=== PATIENT | male | born 1950 | race Caucasian/White ===

== ENCOUNTER 2023-11-24 10:33 | Outpatient (REF) | payer MEDICARE, OTHER, SELFPAY ==
[2023-11-24 11:50] LABS: Estimated Average Glucose 154 mg/dL
[2023-11-24 12:32] LABS: Alanine Aminotransferase 10 U/L (0-40); Albumin Level 4.3 g/dL (3.5-5.0); Alkaline Phosphatase 90 U/L (39-117); Anion Gap 13 (12-20); Aspartate Amino Transferase 16 U/L (5-37); Bilirubin Total 0.4 mg/dL (0.0-1.0); Blood Urea Nitrogen 17 mg/dL (9-16); Calcium 9.5 mg/dL (8.4-10.2); Carbon Dioxide 29 mmol/L (22-29); Chloride 103 mmol/L (96-108); Cholesterol 131 mg/dL (<200); Estimated Glomerular Filt Rate > 60; Glucose Random 157 mg/dL (60-115); HDL Cholesterol 41 mg/dL (>40); LDL Cholesterol Calculated 76 mg/dL (<100); Potassium 4.2 mmol/L (3.3-5.1); Sodium 141 mmol/L (135-145); Total Protein 6.8 g/dL (6.5-8.0); Triglycerides 73 mg/dL (<150)
[2023-11-24 12:50] LABS: TSH reflex Free T4 1.82 uIU/mL (0.32-4.0)
[2023-11-24 14:36] LABS: Creatinine Urine 95.37 mg/dL; Microalbum/Creatinine Ratio Ur 13.6 ug/mg cr (<30)
== END 2023-11-24 10:34 | disposition home or self-care (01) ==
LOC: HO.WFDLDS 10:33
PROVIDERS: Visit Provider Internal Medicine
DX: E11.9 Type 2 diabetes mellitus without complications (principal); E78.5 Hyperlipidemia, unspecified; Z13.228 Encounter for screening for other metabolic disorders
CPT/HCPCS: 36415; 80053; 80061; 82043; 82570; 83036; 84443

== ENCOUNTER 2023-11-29 08:17 | Outpatient (AMB) | payer MEDICARE, OTHER, SELFPAY ==
--- NOTE | 2023-11-29 08:27 | A.OFFPC_ITS ---
Vital Signs 11/29/23 08:43 Height 5 ft 7.5 in Weight 199 lb BMI 30.7 BP 136/60 Blood Pressure Location Rt brachial Position Sitting Respiration 13 Pulse 71 Pulse Source Pulse Oximeter Pulse Oximetry (%) 99 Oxygen Delivery Method Room Air Intake Visit Reasons: establish care Intake Note: Patient reports he needs medication refilled- trazodone and atorvastatin and to go over his lab work. 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 Accompanied by: Self / Same As Patient Allergies No Known Allergies Allergy (Verified 11/29/23 08:38) Medication List - Last Reconciled 11/29/23 by Mariah Augustin MD aspirin (Adult Aspirin Regimen) 81 mg PO DAILY atorvastatin 10 mg PO DAILY clobetasol 0.05% 1 appl topical BID dulaglutide (Trulicity) 3 mg subcut QWEEK gabapentin 300 mg PO TID insulin glargine (Basaglar KwikPen U-100 Insulin) 24 units subcut QPM metformin 1,000 mg PO BID sildenafil (Viagra) 100 mg PO DAILY PRN tadalafil (Cialis) 5 mg PO DAILY tirzepatide (Mounjaro) 7.5 mg (0.5 mL) subcut QWEEK trazodone 50 mg PO BEDTIME PRN valsartan 160 mg PO DAILY Tobacco use date assessed: 11/29/23 Fall risk assessment: No Falls in past year Last assessed Fall Risk: 11/29/23 Dental Screening Dental Screen Date: 11/29/23 Did you have a dental visit in the last 12 months?: Yes Did you have a dental problem in the last 6 months where you did not have access to dental care?: No Was dental information given to patient?: Patient has dentist HPI HPI Comments History of Present Illness Details The patient is a 72-year-old male with a past medical history of type 2 diabetes, hypertension, hyperlipidemia, OA presenting for follow-up About 10 years ago had lipoma excision. Cyst recurred and he would like repeat excision. Type 2 diabetes: Last A1c 7%-08/2023. On Basaglar 20 units daily (prescribed 24), metformin 1000 twice daily, Trulicity 3 mg per week. Issues with stock on last though has not been out. Sometime suboptimal control on trulicity. No weight loss benefit. On statin, ARB. Does have neuropathy in is using gabapentin. History of intra-ocular lens replacement procedure. CV: On valsartan, lipitor. Denies chest pain, shortness of breath OA: Right knee. Colonoscopy 01/2022 ROS CONSTITUTIONAL: Denies weight loss, fever and chills. HEENT: Denies changes in vision and hearing. RESPIRATORY: Denies SOB and cough. CV: Denies palpitations and CP GI: Denies abdominal pain, N/V/D : Denies dysuria and urinary frequency. MSK: Denies new myalgia and joint pain. SKIN: see HPI NEUROLOGICAL: Denies headache PSYCHIATRIC: Denies recent changes in mood. PHYSICAL EXAM: GENERAL: Alert and oriented x 3. NAD EYES: EOMI. Anicteric. HENT: Moist mucous membranes. No scleral icterus. No cervical lymphadenopathy. LUNGS: Clear to auscultation bilaterally. CARDIOVASCULAR: Regular rate and rhythm. No murmur. No JVD. ABDOMEN: Soft, non-tender +bs EXTREMITIES: No edema. Non-tender. SKIN: Large left back cyst NEUROLOGIC: No focal neurological deficits. CN II-XII grossly intact PSYCHIATRIC: Cooperative. Appropriate mood and affect [facility] Medical History Erectile dysfunction Type 2 diabetes mellitus with renal manifestations Microalbuminuria Hypertension Hyperlipidemia Type 2 diabetes mellitus Surgical History History of eye surgery History of shoulder surgery Family History Mother Diabetes Sister Breast cancer Brother Colon cancer Social History Household Members: Spouse Housing: House 75 years or older and lives alone: No Alcohol intake: current Alcohol intake frequency: a few times a week Alcohol type: beer Patient Tobacco Use Status: Never used Tobacco e-Cigarette/Vaping Use: Never Used service: Yes Current occupational status: employed Current occupation: [employer] Cognitive needs: No Hearing needs: No Vision needs: No Questionnaire PHQ-9 Over the last 2 weeks, how often have you been bothered by any of the following problems? 1. Little interest or pleasure in doing things: not at all 2. Feeling down, depressed, or hopeless: not at all 3. Trouble falling or staying asleep, or sleeping too much: not at all 4. Feeling tired or having little energy: not at all 5. Poor appetite or overeating: not at all 6. Feeling bad about yourself - or that you are a failure or have let yourself or your family down: not at all 7. Trouble concentrating on things, such as reading the newspaper or watching television: not at all 8. Moving or speaking so slowly that other people could have noticed. Or the opposite - being so fidgety or restless that you have been moving around a lot more than usual: not at all 9. Thoughts that you would be better off or of hurting yourself in some way: not at all Total score: 0 Depression Screening Interpretation: Negative (neg) Depression Screening Done: Yes 54128 - PHQ-9 Billing: Yes Source: Developed by Drs. Cal Vale, Tiffanie hSort, Raj Tran and colleagues, with an educational ankita from [email or web address]. Thrive Questionnaire Date Thrive assessed: 11/29/23 I am a: Patient What is your living situation today?: I have a steady place to live Within the past 12 months, did the food you bought not last and you didn't have the money to get more?: Never true Within the past 12 months, did you worry whether your food would run out before you got money to buy more?: Never true Do you have trouble paying for medicines?: No Do you have trouble getting transportation to medical appointments?: No Do you have trouble paying your heating and electricity bill?: No Do you have trouble taking care of your child, family member or friend?: No Do you have trouble with day-to-day activities such as bathing, preparing meals, shopping, managing finances, etc.?: No Are you currently unemployed and looking for a job?: No Are you interested in more education?: No Currently or been in a relationship where the following occur: No concerns reported THRIVE Score: 0 AUDIT C Alcohol Use Questionnaire (AUDIT-C) 1. How often do you have a drink containing alcohol?: 2-3 times a week 2. How many drinks containing alcohol do you have on a typical day when you are drinking?: 1 or 2 3. How often do you have six or more drinks on one occasion?: Never Total Score: 3 CHAZ-7 AMB Questionnaire CHAZ-7 Date CHAZ - 7 assessed: 11/29/23 Feeling nervous, anxious, or on edge: 0 = Not at all Not being able to stop or control worryin = Not at all Worrying too much about different things: 0 = Not at all Trouble relaxin = Not at all Being so restless that it is hard to sit still: 0 = Not at all Becoming easily annoyed or irritable: 0 = Not at all Feeling afraid as if something awful might happen: 0 = Not at all Total CHAZ-7 score (0-4 normal; 5-9 mild; 10-14 moderate; 15-21 severe): 0 Source: Developed by Drs. Cal Vale, Tiffanie Short, Raj Tran and colleagues, with an educational ankita from [email or web address]. CHAZ-7 Assessment Billing CHAZ-7 Assessment Tool: CHAZ-7 Assessment 84686 Physical exam (Primary Care) Vital Signs: Last Vital Signs Pulse 71 11/29/23 08:43 Resp 13 11/29/23 08:43 BP 136/60 11/29/23 08:43 Pulse Ox 99 11/29/23 08:43 Oxygen Delivery Method Room Air 11/29/23 08:43 BMI result Body Mass Index 30.7 Tobacco/Smoking Status: Tobacco use Status Tobacco use date assessed 11/29/23 11/29/23 08:51 Patient Tobacco Use Status Never used Tobacco 11/29/23 08:51 e-Cigarette/Vaping Use Never Used 11/29/23 08:51 PHQ-9: PHQ-9 Score PHQ-9: Total score 0 11/29/23 09:01 Depression Screening Interpretation: Negative (neg) Thrive Assessment: Date of Thrive Assessment Date Thrive assessed 11/29/23 11/29/23 08:56 Currently or been in a relationship where the following occur: No concerns repo rted Assessment and Plan Assessment & Plan (1) Type 2 diabetes mellitus: Code(s): E11.9 - Type 2 diabetes mellitus without complications Qualifiers: Diabetes mellitus parts counterman insulin use: with prison use Diabetes mellitus complication status: with ophthalmic complications Diabetes mellitus complication detail: with other ophthalmic complication Qualified Code(s): E11.39 - Type 2 diabetes mellitus with other diabetic ophthalmic complication; Z79.4 - skilled nursing (current) use of insulin Plan: controlled. Switch trulicity to mounjaro if covered. 3mg to 7.5mg If continues trulicity increase basaglar to 22 to 24 units. continue metformin If starts mounjaro hold current basaglar dose (2) Hyperlipidemia: Code(s): E78.5 - Hyperlipidemia, unspecified Qualifiers: Hyperlipidemia type: mixed hyperlipidemia Qualified Code(s): E78.2 - Mixed hyperlipidemia (3) Lipoma: Code(s): D17.9 - Benign lipomatous neoplasm, unspecified Qualifiers: Lipoma location: trunk Qualified Code(s): D17.1 - Benign lipomatous neoplasm of skin and subcutaneous tissue of trunk Plan: referral to general surgery Orders: Orders Hemoglobin A1c 3 Months E11.9 - Type 2 diabetes mellitus without complications, E78.5 - Hyperlipidemia, unspecified, Z13.228 - Encounter for screening for other metabolic disorders Complete Blood Count Auto Diff 3 Months E11.9 - Type 2 diabetes mellitus without complications, E78.5 - Hyperlipidemia, unspecified, Z13.228 - Encounter for screening for other metabolic disorders Comprehensive Met. Panel 3 Months E11.9 - Type 2 diabetes mellitus without complications, E78.5 - Hyperlipidemia, unspecified, Z13.228 - Encounter for screening for other metabolic disorders Referrals General Surgery Referral D17.9 - Benign lipomatous neoplasm, unspecified Medications: New tirzepatide (Mounjaro) 7.5 mg (0.5 mL) subcut QWEEK 2 mL 3RF Coding Level of Care Code Est Pt Level 5 (85900) Diagnoses Type 2 diabetes mellitus with other ophthalmic complication, with long-term current use of insulin E11.39; Z79.4 Diabetes mellitus parts counterman insulin use: with prison use Diabetes mellitus complication status: with ophthalmic complications Diabetes mellitus complication detail: with other ophthalmic complication Mixed hyperlipidemia E78.2 Hyperlipidemia type: mixed hyperlipidemia Lipoma of torso D17.1 Lipoma location: trunk Additional Codes CHAZ-7 Assessment Billing - CHAZ-7 Assessment Tool: CHAZ-7 Assessment [id number] ([id number]) Time Spent (min) 44
[2023-11-29 08:43] VITALS: BP 136/60; PULSE 71; RESP 13; O2SAT 99; BMI 30.7
== END 2023-11-29 09:30 | disposition home or self-care (01) ==
PROVIDERS: PCP Internal Medicine; Visit Provider Internal Medicine
DX: E11.39 Type 2 diabetes mellitus with other diabetic ophthalmic complication (principal); Z79.4 Long term (current) use of insulin; E78.2 Mixed hyperlipidemia; D17.1 Benign lipomatous neoplasm of skin and subcutaneous tissue of trunk
CPT/HCPCS: 99215

== ENCOUNTER 2023-12-14 08:39 | Outpatient (AMB) | payer MEDICARE, OTHER, SELFPAY ==
--- NOTE | 2023-12-14 08:47 | A.OFFVIS_ITS ---
Vital Signs 12/14/23 08:50 Height 5 ft 7.5 in Weight 194 lb BMI 29.9 BP 165/71 H Blood Pressure Location Rt brachial Position Sitting Pulse 70 Intake Visit Reasons: Recurrent cyst~ Lt mid back Intake Note: Patient referred by PCP Dr. Augustin for recurrent cyst on Lt mid back. Present for yrs. Previously excised by Dr. Huitron about 10 yrs ago. Patient c/o: denies pain, oozing. Cyst enlarging, feels uncomfortable. 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 He had this excised approximately 10 years ago. It has not only recurred but has been increasing in size and become more symptomatic. He would like to have it removed. No such lesions elsewhere. Chart was reviewed and patient evaluate [facility] Medical History Erectile dysfunction Type 2 diabetes mellitus with renal manifestations Microalbuminuria Hypertension Hyperlipidemia Type 2 diabetes mellitus Surgical History History of eye surgery History of shoulder surgery Family History Mother Diabetes Sister Breast cancer Brother Colon cancer Social History Household Members: Spouse Housing: House 75 years or older and lives alone: No Alcohol intake: current Alcohol intake frequency: a few times a week Alcohol type: beer Patient Tobacco Use Status: Never used Tobacco e-Cigarette/Vaping Use: Never Used service: Yes Current occupational status: employed Current occupation: [employer] Cognitive needs: No Hearing needs: No Vision needs: No Physical Exam Vital Signs: Last Vital Signs Pulse 70 12/14/23 08:50 BP 165/71 H 12/14/23 08:50 BMI result Body Mass Index 29.9 Chest Other: Chest breath sounds bilaterally, HS 1 in 2 GI Other: Abdomen is soft, benign Skin Other: Right lower flank demonstrates a scar from the previously excised mass. Patient has a proximally 7 x 4 cm soft tissue mass consistent with either recurrent sebaceous cyst or lipoma Assessment & Plan Assessment & Plan (1) Mass of soft tissue: Code(s): M79.89 - Other specified soft tissue disorders Category: Surgical (2) Lipoma: Code(s): D17.9 - Benign lipomatous neoplasm, unspecified Category: Surgical Qualifiers: Lipoma location: trunk Qualified Code(s): D17.1 - Benign lipomatous neoplasm of skin and subcutaneous tissue of trunk Plan As noted above, patient would like to have this removed. Risks, benefits, alternatives of excision of right flank mass were reviewed with the patient and included but not limited to bleeding, infection, recurrence, numbness, pain, scarring, seroma formation and the patient wishes to proceed. All questions answered. Arrangements made for this. Coding Level of Care Code New Pt Level 5 (36821) Diagnoses Mass of soft tissue M79.89 Lipoma of torso D17.1 Lipoma location: trunk
[2023-12-14 08:50] VITALS: BP 165/71; PULSE 70; BMI 29.9
== END 2023-12-14 09:07 | disposition home or self-care (01) ==
PROVIDERS: PCP Internal Medicine; Referring Provider Internal Medicine; Visit Provider Surgery
DX: M79.89 Other specified soft tissue disorders (principal); D17.1 Benign lipomatous neoplasm of skin and subcutaneous tissue of trunk
CPT/HCPCS: 99204

== ENCOUNTER → 2023-12-14 08:39 | Outpatient (BNVA) | payer MEDICARE, OTHER, SELFPAY | PROVIDERS: PCP Internal Medicine; Referring Provider Internal Medicine; Visit Provider Surgery | DX: M79.89 Other specified soft tissue disorders (principal); D17.1 Benign lipomatous neoplasm of skin and subcutaneous tissue of trunk | CPT/HCPCS: 99202 ==

== ENCOUNTER 2023-12-31 05:42 | Day surgery (SDC) | payer MEDICARE, OTHER, SELFPAY ==
[2023-12-29 14:13] VITALS: BMI 30.7
--- NOTE | 2023-12-30 12:20 | MHC.SHP ---
Pre-Procedural Eval Section A - 24 Hr Update-Section A only Date of Service: 12/31/23 The patient is an INPATIENT: No Changes since office visit: No Cold of Flu in the past 2 weeks, No New Medical Problems, No Changes in Medication and No Patient answered all questions Section B - Complete if H&P > 30 days Chief Complaint: Benign lipomatous neoplasm of skin & subcut tissue Allergies: Allergies Allergy/AdvReac Type Severity Reaction Status Date / Time No Known Allergies Allergy Verified 12/14/23 08:48 Review of Systems Sugical H&P ROS: Negative: Constitution, Cardiovascular, Respiratory, Neurological, Psychiatric, Hem-Onc, Allergic/Immunologic, Gastrointestinal, Genitourinary, Musculoskeletal, Integumentary, Endocrine and Eyes/Ears/Nose/Throat Exam Surgical H&P Exam: Normal: HEENT, Normal: Heart, Normal: Lungs, Normal: Extremities, Normal: Abdomen, Normal: Skin and Normal: Neurological Plan I have reviewed the history and physical and performed a pertinent physical examination on my patient. No changes have occurred unless specified. Time Spent With Patient Time: Total time managing care of this patient today ____ minutes.
[2023-12-31 06:16] VITALS: BMI 28.9
[2023-12-31 06:33] LABS: Glucose, Whole Blood 125 mg/dL (60-115)
[2023-12-31 06:38] VITALS: BP 137/46; PULSE 74; RESP 14; TEMP 36.4; O2SAT 99
[2023-12-31] MEDS: Lactated Ringers 1,000 ML 100 ML IVCONT (06:40)
--- NOTE | 2023-12-31 07:00 | HO.ANESPROP2 ---
Documented by User: Vale Price NP 12/30/23 10:02 HPI - Anesthesia Eval Consult details Narrative: 73yo M for Right Wide Local Excision Soft Tissue Flank mass Anesthesia Pre-Procedure Meds Is the patient on any of the following meds?: GLP1/DPP4 PMFSH Active Problems Active Problems: All Active Problems Mass of soft tissue (Acute) Hypertension (Acute) Lipoma (Acute) Screening for metabolic disorder (Acute) Hyperlipidemia (Acute) Type 2 diabetes mellitus (Acute) Past Medical History Medical History Erectile dysfunction Type 2 diabetes mellitus with renal manifestations Microalbuminuria Hypertension Hyperlipidemia Type 2 diabetes mellitus Family History Family History Mother Diabetes Sister Breast cancer Brother Colon cancer Surgical History Surgical History History of eye surgery History of shoulder surgery Social History Social History Household Members: Spouse Housing: House Alcohol intake: current Alcohol intake frequency: holidays/special occasions only Alcohol type: beer Patient Tobacco Use Status: Never used Tobacco e-Cigarette/Vaping Use: Never Used Use of substances other than those prescribed or required for medical reasons: No Are you DNR?: No Advance Directives: No Advance Directives Information Provided: Yes Recently lost weight without trying: No Nutrition Risks: No Nutritional Risk service: Yes Current occupational status: employed Current occupation: [employer] Cognitive needs: No Hearing needs: No Vision needs: No Meds Allergies Allergy/AdvReac Type Severity Reaction Status Date / Time No Known Allergies Allergy Verified 12/31/23 06:09 Home Medications ?Medication ?Instructions ?Recorded ?Confirmed ?Last Taken ?Type aspirin 81 mg tablet,delayed 81 mg PO DAILY 11/29/23 12/31/23 12/30/23 History release (Adult Aspirin Regimen) clobetasol 0.05 % topical cream 1 appl topical BID 11/29/23 12/31/23 12/30/23 History gabapentin 300 mg capsule 300 mg PO TID 11/29/23 12/31/23 12/30/23 History insulin glargine 100 unit/mL (3 24 unit subcut QPM 08/05/24 09/06/24 09/05/24 History mL) subcutaneous pen (Basaglar KwikPen U-100 Insulin) metformin 1,000 mg tablet 1,000 mg PO BID 11/29/23 12/31/23 12/30/23 History sildenafil 100 mg tablet (Viagra) 100 mg PO DAILY PRN Erectile 11/29/23 12/31/23 Unknown History Dysfunction tadalafil 5 mg tablet (Cialis) 5 mg PO DAILY 11/29/23 12/31/23 12/30/23 History Exam Height,Weight and Vital Signs: Height 5 ft 7.5 in Weight 90.265 kg Pertinent Lab Results Pertinent Lab Results: Laboratory Tests 11/24/23 10:38 Sodium 141 Potassium 4.2 Chloride 103 Carbon Dioxide 29 BUN 17 H Creatinine 0.88 Assessment and Plan Assessment Anesthesia Assessment: Chart Reviewed Documented by User: Milly Antonio DO 12/31/23 07:28 HPI - Anesthesia Eval Anesthesia Pre-Procedure Meds Is the patient on any of the following meds?: GLP1/DPP4 PMFSH Past Medical History Medical History Erectile dysfunction Type 2 diabetes mellitus with renal manifestations Microalbuminuria Hypertension Hyperlipidemia Type 2 diabetes mellitus Family History Family History Mother Diabetes Sister Breast cancer Brother Colon cancer Family history of problems with anesthesia: No Surgical History Surgical History History of eye surgery History of shoulder surgery History of Problems with Anesthesia: No Social History Social History Household Members: Spouse Housing: House Alcohol intake: current Alcohol intake frequency: holidays/special occasions only Alcohol type: beer Patient Tobacco Use Status: Never used Tobacco e-Cigarette/Vaping Use: Never Used Use of substances other than those prescribed or required for medical reasons: No Are you DNR?: No Advance Directives: No Advance Directives Information Provided: Yes Recently lost weight without trying: No Nutrition Risks: No Nutritional Risk service: Yes Current occupational status: employed Current occupation: [employer] Cognitive needs: No Hearing needs: No Vision needs: No Meds Allergies Allergy/AdvReac Type Severity Reaction Status Date / Time No Known Allergies Allergy Verified 12/31/23 06:09 Home Medications ?Medication ?Instructions ?Recorded ?Confirmed ?Last Taken ?Type aspirin 81 mg tablet,delayed 81 mg PO DAILY 11/29/23 12/31/23 12/30/23 History release (Adult Aspirin Regimen) clobetasol 0.05 % topical cream 1 appl topical BID 11/29/23 12/31/23 12/30/23 History gabapentin 300 mg capsule 300 mg PO TID 11/29/23 12/31/23 12/30/23 History insulin glargine 100 unit/mL (3 24 unit subcut QPM 11/29/23 12/31/23 12/30/23 History mL) subcutaneous pen (Basaglar KwikPen U-100 Insulin) metformin 1,000 mg tablet 1,000 mg PO BID 11/29/23 12/31/23 12/30/23 History sildenafil 100 mg tablet (Viagra) 100 mg PO DAILY PRN Erectile 11/29/23 12/31/23 Unknown History Dysfunction tadalafil 5 mg tablet (Cialis) 5 mg PO DAILY 11/29/23 12/31/23 12/30/23 History Exam Exam Date and Time: 12/31/23 0700 Height,Weight and Vital Signs: Height 5 ft 7.5 in Weight 90.265 kg Vital Signs Temperature 97.5 F 12/31/23 06:38 Pulse Rate 74 12/31/23 06:38 Respiratory Rate 14 12/31/23 06:38 Blood Pressure 137/46 L 12/31/23 06:38 Pulse Oximetry 99 12/31/23 06:38 Oxygen Delivery Method Room Air 12/31/23 06:38 Temperature 97.5 F 12/31/23 06:38 Pulse Rate 74 12/31/23 06:38 Respiratory Rate 14 12/31/23 06:38 Blood Pressure 137/46 L 12/31/23 06:38 Pulse Oximetry 99 12/31/23 06:38 Oxygen Delivery Method Room Air 12/31/23 06:38 Airway Mallampati Class: I TM Dist: >3cm Neck ROM: Full Loose/Missing/Broken Teeth: No (patient denies any loose or broken teeth) Heart: S1S2 Lungs: CTAB Assessment and Plan Assessment Anesthesia Assessment: Anesthesia Plan Discussed and Chart Reviewed Final Anesthetic Review Family History of Problems with Anesthesia: No History of Problems with Anesthesia: No NPO: Yes ASA Class: II Final Preanesthetic Review: No Changes in Pt Med Stat, Meds/Allgs Chart Reviewed, Consent Obtained/Reviewed and Anes Risks/Benef Reviewed Patient Risk: Low Procedure Risk: Low Anesthetic Plan Anesthetic Plan: MAC: and Agree w/ Assess. and Plan Disposition: Standard PACU
--- NOTE | 2023-12-31 07:23 | MHC.SHP ---
Pre-Procedural Eval Section A - 24 Hr Update-Section A only Date of Service: 12/31/23 The patient is an INPATIENT: No Changes since office visit: No Cold of Flu in the past 2 weeks, No New Medical Problems, No Changes in Medication and No Patient answered all questions Section B - Complete if H&P > 30 days Chief Complaint: Benign lipomatous neoplasm of skin & subcut tissue Details of Present Illness: Left flank recurrent mass excision Allergies: Allergies Allergy/AdvReac Type Severity Reaction Status Date / Time No Known Allergies Allergy Verified 12/31/23 06:09 Plan I have reviewed the history and physical and performed a pertinent physical examination on my patient. No changes have occurred unless specified. Time Spent With Patient Time: Total time managing care of this patient today ____ minutes.
--- NOTE | 2023-12-31 08:06 | P.OP_ITS ---
Operative Note Operative Note Date of Service: 12/31/23 Narrative: Preoperative diagnosis: [] Recurrent left flank mass/lipoma Postop diagnosis: [] The same Procedure [] wide local excision left flank mass Surgeon: [] Daron Combination Machine Tender: [] Jw Type of Anesthesia: [] MAC Indication for surgery: [] Final specimen size approximately 10 x 6 cm consistent with a recurrent large left flank lipoma Findings: [] Patient brought to the operating room, placed on operative table in supine position, after an adequate level of MAC anesthesia was induced, patient was placed in the right lateral decubitus position. Left flank was prepped and draped in usual sterile fashion. Using a transverse bi- elliptical incision, encompassing the mass in the prior scar from the previously excised area, this carried down through skin, subcutaneous tissue, down to flank musculature and undermined using Bovie. Specimen sent to pathology. Wound was irrigated, secured hemostasis. It was closed in the following manner; subcutaneous tissue was reapproximated using interrupted 2-0 Vicryl suture. Skin was closed using interrupted inverted 3-0 Vicryl sutures. Steri-Strips and sterile dressings were applied. Wound was infiltrated at the beginning at the end of the case with 0.5% Marcaine/1% lidocaine. Sponge, needle, and instrument counts were reported correct. Patient tolerated the procedure well and emerged from anesthesia stable condition. EBL minimal
[2023-12-31 08:16] VITALS: BP 131/60; PULSE 65; RESP 14; TEMP 36.1; O2SAT 98
[2023-12-31 08:31] VITALS: BP 113/56; PULSE 63; RESP 16; TEMP 36.1; O2SAT 100
== END 2023-12-31 08:50 | disposition home or self-care (01) ==
PROVIDERS: PCP Internal Medicine; Visit Provider Surgery
PROC: (CPT 11406; principal; 2023-12-31 07:30)
DX: L72.0 Epidermal cyst (principal); M79.89 Other specified soft tissue disorders; E11.29 Type 2 diabetes mellitus with other diabetic kidney complication; R80.9 Proteinuria, unspecified; I10 Essential (primary) hypertension; E78.5 Hyperlipidemia, unspecified; N52.9 Male erectile dysfunction, unspecified; Z79.4 Long term (current) use of insulin; Z79.84 Long term (current) use of oral hypoglycemic drugs; Z79.85 Long-term (current) use of injectable non-insulin antidiabetic drugs
CPT/HCPCS: 11406; 12034; 82947; 88304; J0690; J1100; J1596; J2250; J2704; J2795; J3010

== ENCOUNTER → 2023-12-31 05:42 | Outpatient (BNV) | payer MEDICARE, OTHER, SELFPAY | PROVIDERS: PCP Internal Medicine; Visit Provider Surgery | DX: L72.0 Epidermal cyst (principal) | CPT/HCPCS: 21933 ==

== ENCOUNTER 2024-01-10 10:00 | Outpatient (AMB) | payer MEDICARE, OTHER, SELFPAY ==
--- NOTE | 2024-01-10 10:09 | MHC.OFFVIS ---
Intake Visit Reasons: S/P WLE Rt flank mass Intake Note: Patient here s/p WLE Lt flank cyst. Reports incision healing well. Denies oozing, tenderness. 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 He has no wound issues or complaints. Pathology is benign. [facility] Medical History Erectile dysfunction Type 2 diabetes mellitus with renal manifestations Microalbuminuria Hypertension Hyperlipidemia Type 2 diabetes mellitus Surgical History History of eye surgery History of shoulder surgery Family History Mother Diabetes Sister Breast cancer Brother Colon cancer Social History Household Members: Spouse Housing: House 75 years or older and lives alone: No Alcohol intake: current Alcohol intake frequency: holidays/special occasions only Alcohol type: beer Patient Tobacco Use Status: Never used Tobacco e-Cigarette/Vaping Use: Never Used service: Yes Current occupational status: employed Current occupation: [employer] Cognitive needs: No Hearing needs: No Vision needs: No Physical Exam GI Other: Left back wound healing very well Assessment & Plan Assessment & Plan (1) Postop check: Code(s): Z09 - Encounter for follow-up examination after completed treatment for conditions other than malignant neoplasm Category: Surgical Plan Patient has been given local instructions including avoiding strenuous activities for next few weeks time and will otherwise follow-up p.r.n.. All questions answered. Coding Level of Care Code Global (52160) Diagnoses Postop check Z09
== END 2024-01-10 10:19 | disposition home or self-care (01) ==
PROVIDERS: PCP Internal Medicine; Visit Provider Surgery
DX: Z09 Encounter for follow-up examination after completed treatment for conditions other than malignant neoplasm (principal)
CPT/HCPCS: 99024

== ENCOUNTER → 2024-01-10 10:00 | Outpatient (BNVA) | payer MEDICARE, OTHER, SELFPAY | PROVIDERS: PCP Internal Medicine; Visit Provider Surgery | DX: Z09 Encounter for follow-up examination after completed treatment for conditions other than malignant neoplasm (principal); Z87.2 Personal history of diseases of the skin and subcutaneous tissue; Z98.890 Other specified postprocedural states | CPT/HCPCS: 99212 ==

== ENCOUNTER 2024-02-08 10:55 | Outpatient (AMB) | payer MEDICARE, OTHER, SELFPAY ==
--- NOTE | 2024-02-08 10:58 | A.OFFVIS_ITS ---
Vital Signs 02/08/24 11:07 Height 5 ft 7.5 in Weight 189 lb BMI 29.2 BP 156/68 H Blood Pressure Location Rt brachial Position Sitting Pulse 81 Intake Visit Reasons: incision infected Intake Note: Patient being seen this morning as an urgent appointment. Patient c/o: Lt flank site infection. Redness, yellowish discharge. Hx of cyst excision on 12-31-2023. 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 He has no other wound issues or complaints. [facility] Medical History Erectile dysfunction Type 2 diabetes mellitus with renal manifestations Microalbuminuria Hypertension Hyperlipidemia Type 2 diabetes mellitus Surgical History History of eye surgery History of shoulder surgery Family History Mother Diabetes Sister Breast cancer Brother Colon cancer Social History Household Members: Spouse Housing: House 75 years or older and lives alone: No Alcohol intake: current Alcohol intake frequency: holidays/special occasions only Alcohol type: beer Patient Tobacco Use Status: Never used Tobacco e-Cigarette/Vaping Use: Never Used service: Yes Current occupational status: employed Current occupation: [employer] Cognitive needs: No Hearing needs: No Vision needs: No Physical Exam Vital Signs: Last Vital Signs Pulse 81 02/08/24 11:07 BP 156/68 H 02/08/24 11:07 BMI result Body Mass Index 29.2 Skin Other: Patient was extruding some sutures from his incision/superficial skin abscess but no evidence of any wound infection. Assessment & Plan Assessment & Plan (1) Postoperative stitch abscess: Code(s): T81.41XA - Infection following a procedure, superficial incisional surgical site, initial encounter Category: Surgical (2) Postop check: Code(s): Z09 - Encounter for follow-up examination after completed treatment for conditions other than malignant neoplasm Category: Surgical Plan Wound was cleaned and bacitracin dressing applied. Patient was reassured. He has been given local instructions will otherwise follow-up p.r.n.. All questions answered. Coding Level of Care Code Global (31603) Diagnoses Postoperative stitch abscess T81.41XA Postop check Z09
[2024-02-08 11:07] VITALS: BP 156/68; PULSE 81; BMI 29.2
== END 2024-02-08 11:16 | disposition home or self-care (01) ==
PROVIDERS: PCP Internal Medicine; Visit Provider Surgery
DX: T81.41XA Infection following a procedure, superficial incisional surgical site, initial encounter (principal); Z09 Encounter for follow-up examination after completed treatment for conditions other than malignant neoplasm
CPT/HCPCS: 99024

== ENCOUNTER → 2024-02-08 10:55 | Outpatient (BNVA) | payer MEDICARE, OTHER, SELFPAY | PROVIDERS: PCP Internal Medicine; Visit Provider Surgery | DX: Z09 Encounter for follow-up examination after completed treatment for conditions other than malignant neoplasm (principal); T81.41XA Infection following a procedure, superficial incisional surgical site, initial encounter | CPT/HCPCS: 99212 ==

== ENCOUNTER 2024-03-01 10:07 | Outpatient (REF) | payer MEDICARE, OTHER, SELFPAY ==
[2024-03-01 11:21] LABS: MANUAL DIFF FLAG NO
[2024-03-01 11:32] LABS: Basophils Percent Auto 0.6 % (0-2); Eosinophils Absolute Auto 0.2 X10*3/uL (0.0-0.4); Eosinophils Percent Auto 3.9 % (0-4); Hematocrit 42.2 % (42.0-52.0); Hemoglobin 14.2 g/dl (14.0-18.0); Imm Gran Abs Auto 0.02 X10*3/uL (0.00-0.03); Imm Gran Pct Auto 0.4 % (0.0-0.4); Lymphocytes Absolute Auto 1.1 X10*3/uL (1.2-4.9); Lymphocytes Percent Auto 23.1 % (20-40); Mean Corpuscular HGB Conc 33.6 g/dl (31.0-36.0); Mean Corpuscular Hemoglobin 31.1 pg (27.0-33.0); Mean Corpuscular Volume 92.5 fL (80.0-98.0); Mean Platelet Volume 10.5 fL (9.4-12.4); Monocytes Absolute Auto 0.4 X10*3/uL (0.1-1.2); Monocytes Percent Auto 9.5 % (2-11); Neutrophils Absolute Auto 2.9 x10*3/uL (2.0-8.3); Neutrophils Percent Auto 62.5 % (45-73); Platelet Count 210 X10*3/uL (160-400); Red Blood Count 4.56 X10*6/uL (4.60-5.80); Red Cell Distribution Width 14.4 % (11.0-16.0); White Blood Count 4.6 X10*3/uL (4.8-10.8)
[2024-03-01 11:45] LABS: Estimated Average Glucose 128 mg/dL; Hemoglobin A1C 162.6345 umol/L; Hemoglobin A1c % 6.1 % (<6.0); Total Hemoglobin (HGBA1C) 3801.8729 umol/L
[2024-03-01 12:43] LABS: Alanine Aminotransferase 10 U/L (0-40); Albumin Level 4.3 g/dL (3.5-5.0); Alkaline Phosphatase 83 U/L (39-117); Anion Gap 14 (12-20); Aspartate Amino Transferase 21 U/L (5-37); Bilirubin Total 0.6 mg/dL (0.0-1.0); Blood Urea Nitrogen 13 mg/dL (9-16); Calcium 9.8 mg/dL (8.4-10.2); Carbon Dioxide 26 mmol/L (22-29); Chloride 106 mmol/L (96-108); Cholesterol 120 mg/dL (<200); Estimated Glomerular Filt Rate > 60; Glucose Random 130 mg/dL (60-115); HDL Cholesterol 45 mg/dL (>40); LDL Cholesterol Calculated 62 mg/dL (<100); Potassium 4.3 mmol/L (3.3-5.1); Sodium 142 mmol/L (135-145); TSH reflex Free T4 1.81 uIU/mL (0.32-4.0); Total Protein 6.9 g/dL (6.5-8.0); Triglycerides 69 mg/dL (<150)
== END 2024-03-01 10:08 | disposition home or self-care (01) ==
LOC: HO.WFDLDS 10:07
PROVIDERS: Visit Provider Internal Medicine
DX: Z13.228 Encounter for screening for other metabolic disorders (principal); E78.5 Hyperlipidemia, unspecified; E11.9 Type 2 diabetes mellitus without complications
CPT/HCPCS: 36415; 80053; 80061; 83036; 84443; 85025

== ENCOUNTER 2024-03-10 08:42 | Outpatient (AMB) | payer MEDICARE, OTHER, SELFPAY ==
--- NOTE | 2024-03-10 08:50 | A.OFFPC_ITS ---
Vital Signs 03/10/24 08:56 Height 5 ft 7.5 in Weight 192 lb BMI 29.6 BP 130/54 L Blood Pressure Location Lt brachial Position Sitting Pulse 66 Pulse Source Pulse Oximeter Pulse Oximetry (%) 99 Oxygen Delivery Method Room Air Oxygen Flow Rate 192 Intake Visit Reasons: 3 mon dm Intake Note: Follow up Allergies nirmatrelvir [From Paxlovid] Allergy (Severe, Verified 03/10/24 08:53) Nausea ritonavir [From Paxlovid] Allergy (Severe, Verified 03/10/24 08:53) Nausea Tobacco use date assessed: 11/29/23 Dental Screening Dental Screen Date: 11/29/23 HPI HPI Comments History of Present Illness Details The patient is a 72-year-old male with a past medical history of type 2 diabetes, hypertension, hyperlipidemia, OA presenting for follow-up Recent lipoma excision. Doing well Type 2 diabetes: A1C 6.1% on 03/10/2024. Last A1c 7%-08/2023. On Basaglar , metformin 1000 twice daily, mounjaro. No weight loss benefit. On statin, ARB. Does have neuropathy in is using gabapentin. History of intra-ocular lens replacement procedure. Eye exam is up to date CV: On valsartan, lipitor. Normotensive. Denies chest pain, shortness of breath OA: Right knee. Colonoscopy 01/2022 ROS CONSTITUTIONAL: Denies weight loss, fever and chills. HEENT: Denies changes in vision and hearing. RESPIRATORY: Denies SOB and cough. CV: Denies palpitations and CP GI: Denies abdominal pain, N/V/D : Denies dysuria and urinary frequency. MSK: Denies new myalgia and joint pain. SKIN: see HPI NEUROLOGICAL: Denies headache PSYCHIATRIC: Denies recent changes in mood. PHYSICAL EXAM: GENERAL: Alert and oriented x 3. NAD EYES: EOMI. Anicteric. HENT: Moist mucous membranes. No scleral icterus. No cervical lymphadenopathy. LUNGS: Clear to auscultation bilaterally. CARDIOVASCULAR: Regular rate and rhythm. No murmur. No JVD. ABDOMEN: Soft, non-tender +bs EXTREMITIES: No edema. Non-tender. SKIN: Large left back cyst NEUROLOGIC: No focal neurological deficits. CN II-XII grossly intact PSYCHIATRIC: Cooperative. Appropriate mood and affect [facility] Medical History (Updated 03/10/24 @ 09:20 by Mariah Augustin MD) Erectile dysfunction Type 2 diabetes mellitus with renal manifestations Microalbuminuria Hypertension Hyperlipidemia Type 2 diabetes mellitus Surgical History (Updated 03/10/24 @ 08:50 by Leanne Eagle CMA) H/O removal of cyst History of eye surgery History of shoulder surgery Family History (Updated 03/10/24 @ 08:51 by Leanne Eagle CMA) Mother Diabetes Sister Breast cancer Brother Colon cancer Other Substance abuse Social History (Updated 03/10/24 @ 08:51 by Leanne Eagle CMA) Household Members: Spouse Housing: House 75 years or older and lives alone: No Alcohol intake: current Alcohol intake frequency: holidays/special occasions only Alcohol type: beer Comment: occasional Patient Tobacco Use Status: Never used Tobacco e-Cigarette/Vaping Use: Never Used service: Yes Current occupational status: employed Current occupation: [employer] Cognitive needs: No Hearing needs: No Vision needs: No Questionnaire PHQ-9 Over the last 2 weeks, how often have you been bothered by any of the following problems? 1. Little interest or pleasure in doing things: not at all 2. Feeling down, depressed, or hopeless: not at all 3. Trouble falling or staying asleep, or sleeping too much: not at all 4. Feeling tired or having little energy: not at all 5. Poor appetite or overeating: not at all 6. Feeling bad about yourself - or that you are a failure or have let yourself or your family down: not at all 7. Trouble concentrating on things, such as reading the newspaper or watching television: not at all 8. Moving or speaking so slowly that other people could have noticed. Or the opposite - being so fidgety or restless that you have been moving around a lot more than usual: not at all 9. Thoughts that you would be better off or of hurting yourself in some way: not at all Total score: 0 Depression Screening Interpretation: Negative (neg) Depression Screening Done: Yes 80659 - PHQ-9 Billing: Yes Source: Developed by Drs. Cal Vale, Tiffanie Short, Raj Tran and colleagues, with an educational ankita from [employer]. Thrive Questionnaire Date Thrive assessed: 03/10/24 I am a: Patient What is your living situation today?: I have a steady place to live Within the past 12 months, did the food you bought not last and you didn't have the money to get more?: Never true Within the past 12 months, did you worry whether your food would run out before you got money to buy more?: Never true Do you have trouble paying for medicines?: No Do you have trouble getting transportation to medical appointments?: No Do you have trouble paying your heating and electricity bill?: No Do you have trouble taking care of your child, family member or friend?: No Do you have trouble with day-to-day activities such as bathing, preparing meals, shopping, managing finances, etc.?: No Are you currently unemployed and looking for a job?: No Are you interested in more education?: No Please select the resources that you would like help with: None Currently or been in a relationship where the following occur: No concerns reported THRIVE Score: 0 AUDIT C Alcohol Use Questionnaire (AUDIT-C) 1. How often do you have a drink containing alcohol?: Monthly or less 2. How many drinks containing alcohol do you have on a typical day when you are drinking?: 1 or 2 3. How often do you have six or more drinks on one occasion?: Never Total Score: 1 CHAZ-7 AMB Questionnaire CHAZ-7 Date CHAZ - 7 assessed: 03/10/24 Feeling nervous, anxious, or on edge: 0 = Not at all Not being able to stop or control worryin = Not at all Worrying too much about different things: 0 = Not at all Trouble relaxin = Not at all Being so restless that it is hard to sit still: 0 = Not at all Becoming easily annoyed or irritable: 1 = Several days Feeling afraid as if something awful might happen: 0 = Not at all Total CHAZ-7 score (0-4 normal; 5-9 mild; 10-14 moderate; 15-21 severe): 1 Source: Developed by Drs. Cal Vale, Tiffanie Short, Raj Tran and colleagues, with an educational ankita from [employer]. CHAZ-7 Assessment Billing CHAZ-7 Assessment Tool: CHAZ-7 Assessment 82114 Physical exam (Primary Care) Vital Signs: Last Vital Signs Pulse 66 11/15/24 08:56 BP 130/54 L 03/10/24 08:56 Pulse Ox 99 03/10/24 08:56 Oxygen Delivery Method Room Air 03/10/24 08:56 Oxygen Flow Rate 192 03/10/24 08:56 BMI result Body Mass Index 29.6 Tobacco/Smoking Status: Tobacco use Status Tobacco use date assessed 11/29/23 03/10/24 08:58 Patient Tobacco Use Status Never used Tobacco 03/10/24 08:58 e-Cigarette/Vaping Use Never Used 03/10/24 08:58 PHQ-9: PHQ-9 Score PHQ-9: Total score 0 03/10/24 08:58 Depression Screening Interpretation: Negative (neg) Thrive Assessment: Date of Thrive Assessment Date Thrive assessed 03/10/24 03/10/24 08:58 Currently or been in a relationship where the following occur: No concerns reported Coding Level of Care Code Est Pt Level 4 (79831) Diagnoses Type 2 diabetes mellitus with other ophthalmic complication, with long-term current use of insulin E11.39; Z79.4 Diabetes mellitus superintendent container terminal insulin use: with superintendent container terminal use Diabetes mellitus complication status: with ophthalmic complications Diabetes mellitus complication detail: with other ophthalmic complication Mixed hyperlipidemia E78.2 Hyperlipidemia type: mixed hyperlipidemia Primary hypertension I10 Hypertension type: primary hypertension Additional Codes CHAZ-7 Assessment Billing - CHAZ-7 Assessment Tool: CHAZ-7 Assessment [id number] ([id number]) PHQ-9 - 01325 - PHQ-9 Billing: Yes ([id number]) Assessment & Plan Assessment & Plan (1) Type 2 diabetes mellitus: Code(s): E11.9 - Type 2 diabetes mellitus without complications Category: Medical Qualifiers: Diabetes mellitus superintendent container terminal insulin use: with detention use Diabetes mellitus complication status: with ophthalmic complications Diabetes mellitus complication detail: with other ophthalmic complication Qualified Code(s): E11.39 - Type 2 diabetes mellitus with other diabetic ophthalmic complication; Z79.4 - intermediate accountant (current) use of insulin Plan: Controlled on current regimen eye exam utd stable neuropathy (2) Hyperlipidemia: Code(s): E78.5 - Hyperlipidemia, unspecified Category: Medical Qualifiers: Hyperlipidemia type: mixed hyperlipidemia Qualified Code(s): E78.2 - Mixed hyperlipidemia Plan: at goal LDL <70 (3) Hypertension: Code(s): I10 - Essential (primary) hypertension Category: Medical Qualifiers: Hypertension type: primary hypertension Qualified Code(s): I10 - Essential (primary) hypertension Plan: Controlled on current medication Orders: Orders Hemoglobin A1c 3 Months E11.39 - Type 2 diabetes mellitus with other diabetic ophthalmic complication, Z79.4 - intermediate accountant (current) use of insulin Comprehensive Met. Panel 3 Months E11.39 - Type 2 diabetes mellitus with other diabetic ophthalmic complication, Z79.4 - intermediate accountant (current) use of insulin Medications: New gabapentin 300 mg PO TID 270 caps 3RF Changed From insulin glargine (Basaglar KwikPen U-100 Insulin) 24 units subcut QPM E11.39 - Type 2 diabetes mellitus with other diabetic ophthalmic complication, Z79.4 - shelter (current) use of insulin To Basaglar KwikPen U-100 Insulin (insulin glargine) 24 units (0.24 mL) subcut QPM 15 mL 3RF NS E11.39 - Type 2 diabetes mellitus with other diabetic ophthalmic complication, Z79.4 - shelter (current) use of insulin
[2024-03-10 08:56] VITALS: BP 130/54; PULSE 66; O2SAT 99; BMI 29.6
== END 2024-03-10 09:20 | disposition home or self-care (01) ==
PROVIDERS: PCP Internal Medicine; Visit Provider Internal Medicine
DX: E11.39 Type 2 diabetes mellitus with other diabetic ophthalmic complication (principal); Z79.4 Long term (current) use of insulin; E78.2 Mixed hyperlipidemia; I10 Essential (primary) hypertension

== ENCOUNTER → 2024-03-10 08:42 | Outpatient (BNVA) | payer MEDICARE, OTHER, SELFPAY | PROVIDERS: PCP Internal Medicine; Visit Provider Internal Medicine | DX: E11.39 Type 2 diabetes mellitus with other diabetic ophthalmic complication (principal); E11.40 Type 2 diabetes mellitus with diabetic neuropathy, unspecified; E78.2 Mixed hyperlipidemia; I10 Essential (primary) hypertension; M17.11 Unilateral primary osteoarthritis, right knee; Z79.4 Long term (current) use of insulin; Z79.899 Other long term (current) drug therapy | CPT/HCPCS: 96127; 99212 ==

== ENCOUNTER 2024-06-06 09:34 | Outpatient (REF) | payer MEDICARE, OTHER, SELFPAY ==
[2024-06-06 11:34] LABS: Estimated Average Glucose 137 mg/dL; Hemoglobin A1C 166.7309 umol/L; Hemoglobin A1c % 6.4 % (<6.0); Total Hemoglobin (HGBA1C) 3611.0248 umol/L
[2024-06-06 11:41] LABS: Alanine Aminotransferase 8 U/L (0-40); Albumin Level 4.1 g/dL (3.5-5.0); Alkaline Phosphatase 73 U/L (39-117); Anion Gap 10 (12-20); Aspartate Amino Transferase 20 U/L (5-37); Bilirubin Total 0.4 mg/dL (0.0-1.0); Blood Urea Nitrogen 13 mg/dL (9-16); Calcium 9.3 mg/dL (8.4-10.2); Carbon Dioxide 28 mmol/L (22-29); Chloride 107 mmol/L (96-108); Estimated Glomerular Filt Rate > 60; Glucose Random 113 mg/dL (60-115); Potassium 4.1 mmol/L (3.3-5.1); Sodium 141 mmol/L (135-145); Total Protein 6.8 g/dL (6.5-8.0)
== END 2024-06-06 09:35 | disposition home or self-care (01) ==
LOC: HO.WFDLDS 09:34
PROVIDERS: Visit Provider Internal Medicine
DX: E78.5 Hyperlipidemia, unspecified (principal); Z13.228 Encounter for screening for other metabolic disorders; E11.9 Type 2 diabetes mellitus without complications; E11.39 Type 2 diabetes mellitus with other diabetic ophthalmic complication; Z79.4 Long term (current) use of insulin
CPT/HCPCS: 36415; 80053; 83036

== ENCOUNTER 2024-06-13 09:03 | Outpatient (AMB) | payer MEDICARE, OTHER, SELFPAY ==
--- NOTE | 2024-06-13 09:04 | MHC.PC.OV ---
Vital Signs 06/13/24 09:08 Height 5 ft 7.5 in Weight 194 lb 8 oz BMI 30.0 BP 150/70 H Blood Pressure Location Rt brachial Position Sitting Respiration 13 Pulse 75 Pulse Source Pulse Oximeter Temp 96.9 F Temp Source Oral Pulse Oximetry (%) 96 Oxygen Delivery Method Room Air Intake Visit Reasons: DM Intake Note: follow up on DM Business Management Intern Required: No Allergies nirmatrelvir [From Paxlovid] Allergy (Severe, Verified 06/13/24 09:05) Nausea ritonavir [From Paxlovid] Allergy (Severe, Verified 06/13/24 09:05) Nausea Medication List - Last Reconciled 06/13/24 by Mariah Augustin MD aspirin (Adult Aspirin Regimen) 81 mg PO DAILY atorvastatin 10 mg PO QPM Basaglar KwikPen U-100 Insulin (insulin glargine) 20 units (0.2 mL) subcut QPM NS [BD Lilian 2 Gen . Pen [place] 32G Once daily for type 2 diabetes] BD Ultra-Fine Lilian Pen Needle (pen needle, diabetic) once daily NS clobetasol 0.05% 1 appl topical BID gabapentin 300 mg PO TID metformin 1,000 mg PO BID Mounjaro (tirzepatide) 10 mg (0.5 mL) subcut QWEEK NS sildenafil (Viagra) 100 mg PO DAILY PRN tadalafil (Cialis) 5 mg PO DAILY trazodone 50 mg PO BEDTIME PRN valsartan 160 mg PO DAILY Tobacco use date assessed: 06/13/24 Fall risk assessment: No Falls in past year Last assessed Fall Risk: 06/13/24 Dental Screening Dental Screen Date: 06/13/24 Did you have a dental visit in the last 12 months?: No Did you have a dental problem in the last 6 months where you did not have access to dental care?: No Was dental information given to patient?: Patient has dentist HPI HPI Comments History of Present Illness Details The patient is a 73-year-old male with a past medical history of type 2 diabetes, hypertension, hyperlipidemia, OA presenting for follow-up Type 2 diabetes: A1C 6.4% on 03/10/2024 from 7%-08/2023. On Basaglar 24, metformin 1000 twice daily, mounjaro 7.5. No weight loss benefit. On statin, ARB. Does have neuropathy in is using gabapentin. History of intra-ocular lens replacement procedure. Eye exam is up to date CV: On valsartan, lipitor. Normotensive. Denies chest pain, shortness of breath OA: Right knee. Colonoscopy 01/2022-5 year repeat recommended ROS CONSTITUTIONAL: Denies weight loss, fever and chills. HEENT: Denies changes in vision and hearing. RESPIRATORY: Denies SOB and cough. CV: Denies palpitations and CP GI: Denies abdominal pain, N/V/D : Denies dysuria and urinary frequency. MSK: Denies new myalgia and joint pain. SKIN: see HPI NEUROLOGICAL: Denies headache PSYCHIATRIC: Denies recent changes in mood. PHYSICAL EXAM: GENERAL: Alert and oriented x 3. NAD EYES: EOMI. Anicteric. HENT: Moist mucous membranes. No scleral icterus. No cervical lymphadenopathy. LUNGS: Clear to auscultation bilaterally. CARDIOVASCULAR: Regular rate and rhythm. No murmur. No JVD. ABDOMEN: Soft, non-tender +bs EXTREMITIES: No edema. Non-tender. SKIN: Large left back cyst NEUROLOGIC: No focal neurological deficits. CN II-XII grossly intact PSYCHIATRIC: Cooperative. Appropriate mood and affect [facility] Medical History Erectile dysfunction Type 2 diabetes mellitus with renal manifestations Microalbuminuria Hypertension Hyperlipidemia Type 2 diabetes mellitus Surgical History H/O removal of cyst History of eye surgery History of shoulder surgery Family History Mother Diabetes Sister Breast cancer Brother Colon cancer Other Substance abuse Social History Household Members: Spouse Housing: House 75 years or older and lives alone: No Alcohol intake: current Alcohol intake frequency: holidays/special occasions only Alcohol type: beer Comment: occasional Patient Tobacco Use Status: Never used Tobacco e-Cigarette/Vaping Use: Never Used service: Yes Current occupational status: employed Current occupation: [employer] Cognitive needs: No Hearing needs: No Vision needs: No Questionnaire PHQ-9 Over the last 2 weeks, how often have you been bothered by any of the following problems? 1. Little interest or pleasure in doing things: not at all 2. Feeling down, depressed, or hopeless: not at all 3. Trouble falling or staying asleep, or sleeping too much: not at all 4. Feeling tired or having little energy: several days 5. Poor appetite or overeating: not at all 6. Feeling bad about yourself - or that you are a failure or have let yourself or your family down: not at all 7. Trouble concentrating on things, such as reading the newspaper or watching television: not at all 8. Moving or speaking so slowly that other people could have noticed. Or the opposite - being so fidgety or restless that you have been moving around a lot more than usual: not at all 9. Thoughts that you would be better off or of hurting yourself in some way: not at all Total score: 1 Depression Screening Interpretation: Negative Depression Screening Done: Yes 64698 - PHQ-9 Billing: Yes Source: Developed by Drs. Cal Vale, Tiffanie Short, Raj rTan and colleagues, with an educational ankita from [employer]. Thrive Questionnaire Date Thrive assessed: 06/13/24 I am a: Patient What is your living situation today?: I have a steady place to live Within the past 12 months, did the food you bought not last and you didn't have the money to get more?: Never true Within the past 12 months, did you worry whether your food would run out before you got money to buy more?: Never true Do you have trouble paying for medicines?: No Do you have trouble getting transportation to medical appointments?: No Do you have trouble paying your heating and electricity bill?: No Do you have trouble taking care of your child, family member or friend?: No Do you have trouble with day-to-day activities such as bathing, preparing meals, shopping, managing finances, etc.?: No Are you currently unemployed and looking for a job?: No Are you interested in more education?: No Please select the resources that you would like help with: None Currently or been in a relationship where the following occur: No concerns reported THRIVE Score: 0 AUDIT C Alcohol Use Questionnaire (AUDIT-C) 1. How often do you have a drink containing alcohol?: Monthly or less 2. How many drinks containing alcohol do you have on a typical day when you are drinking?: 1 or 2 3. How often do you have six or more drinks on one occasion?: Never Total Score: 1 CHAZ-7 AMB Questionnaire CHAZ-7 Date CHAZ - 7 assessed: 06/13/24 Feeling nervous, anxious, or on edge: 0 = Not at all Not being able to stop or control worryin = Not at all Worrying too much about different things: 0 = Not at all Trouble relaxin = Not at all Being so restless that it is hard to sit still: 0 = Not at all Becoming easily annoyed or irritable: 1 = Several days Feeling afraid as if something awful might happen: 0 = Not at all Total CHAZ-7 score (0-4 normal; 5-9 mild; 10-14 moderate; 15-21 severe): 1 Source: Developed by Drs. Cal Vale, Tiffanie Short, Raj Tran and colleagues, with an educational ankita from [employer]. CHAZ-7 Assessment Billing CHAZ-7 Assessment Tool: CHAZ-7 Assessment 61275 Physical exam (Primary Care) Vital Signs: Last Vital Signs Temp 96.9 F 06/13/24 09:08 Pulse 75 06/13/24 09:08 Resp 13 06/13/24 09:08 BP 150/70 H 06/13/24 09:08 Pulse Ox 96 06/13/24 09:08 Oxygen Delivery Method Room Air 06/13/24 09:08 BMI result Body Mass Index 30.0 Tobacco/Smoking Status: Tobacco use Status Tobacco use date assessed 06/13/24 06/13/24 09:07 Patient Tobacco Use Status Never used Tobacco 06/13/24 09:07 e-Cigarette/Vaping Use Never Used 06/13/24 09:07 PHQ-9: PHQ-9 Score PHQ-9: Total score 1 06/13/24 09:22 Depression Screening Interpretation: Negative Thrive Assessment: Date of Thrive Assessment Date Thrive assessed 06/13/24 06/13/24 09:07 Currently or been in a relationship where the following occur: No concerns reported Coding Level of Care Code Est Pt Level 4 (56032) Complex EM visit Add On G2211 Diagnoses Type 2 diabetes mellitus with other circulatory complication, with long-term current use of insulin E11.59; Z79.4 Diabetes mellitus fci insulin use: with long term care phlebotomist use Diabetes mellitus complication status: with circulatory complication Diabetes mellitus complication detail: with other circulatory complications Primary hypertension I10 Hypertension type: primary hypertension Additional Codes CHAZ-7 Assessment Billing - CHAZ-7 Assessment Tool: CHAZ-7 Assessment 38514 ([id number]) PHQ-9 - 60337 - PHQ-9 Billing: Yes ([id number]) Assessment & Plan Assessment & Plan (1) Type 2 diabetes mellitus: Code(s): E11.9 - Type 2 diabetes mellitus without complications Category: Medical Qualifiers: Diabetes mellitus long term care phlebotomist insulin use: with long term care phlebotomist use Diabetes mellitus complication status: with circulatory complication Diabetes mellitus complication detail: with other circulatory complications Qualified Code(s): E11.59 - Type 2 diabetes mellitus with other circulatory complications; Z79.4 - long-term (current) use of insulin Plan: Type 2 DM with +alb/cr and ED Well controlled Patient interested in losing a few pounds given BMI and diabetes. Will increase mounjaro to 10mg weekly and decrease basaglar to 20 units daily (2) Hypertension: Code(s): I10 - Essential (primary) hypertension Category: Medical Qualifiers: Hypertension type: primary hypertension Qualified Code(s): I10 - Essential (primary) hypertension Plan: well controlled on current medication Low salt diet. Increase physical activity. Efforts towards weight loss Orders: Orders Hemoglobin A1c 4 Months E11.39 - Type 2 diabetes mellitus with other diabetic ophthalmic complication, E78.2 - Mixed hyperlipidemia, Z79.4 - long-term (current) use of insulin Lipid Panel 4 Months E11.39 - Type 2 diabetes mellitus with other diabetic ophthalmic complication, E78.2 - Mixed hyperlipidemia, Z79.4 - intermodal customer service (current) use of insulin Comprehensive Met. Panel 4 Months E11.39 - Type 2 diabetes mellitus with other diabetic ophthalmic complication, E78.2 - Mixed hyperlipidemia, Z79.4 - long-term (current) use of insulin Medications: New Mounjaro (tirzepatide) 10 mg (0.5 mL) subcut QWEEK 2 mL 11RF NS E11.39 - Type 2 diabetes mellitus with other diabetic ophthalmic complication, Z79.4 - long-term (current) use of insulin Changed From Basaglar KwikPen U-100 Insulin (insulin glargine) 24 units (0.24 mL) subcut QPM 15 mL 3RF NS E11.39 - Type 2 diabetes mellitus with other diabetic ophthalmic complication, Z79.4 - intermodal customer service (current) use of insulin To Basaglar KwikPen U-100 Insulin (insulin glargine) 20 units (0.2 mL) subcut QPM 15 mL 3RF NS E11.39 - Type 2 diabetes mellitus with other diabetic ophthalmic complication, Z79.4 - intermodal customer service (current) use of insulin Refilled tadalafil (Cialis) 5 mg PO DAILY 90 tabs 3RF Discontinued tirzepatide (Mounjaro) Discontinued Reason: Doctor's Order 7.5 mg (0.5 mL) subcut QWEEK 2 mL 3RF
[2024-06-13 09:08] VITALS: BP 150/70; PULSE 75; RESP 13; TEMP 36.1; O2SAT 96
== END 2024-06-13 09:40 | disposition home or self-care (01) ==
PROVIDERS: PCP Internal Medicine; Visit Provider Internal Medicine
DX: E11.59 Type 2 diabetes mellitus with other circulatory complications (principal); Z79.4 Long term (current) use of insulin; I10 Essential (primary) hypertension

== ENCOUNTER → 2024-06-13 09:03 | Outpatient (BNVA) | payer MEDICARE, OTHER, SELFPAY | PROVIDERS: PCP Internal Medicine; Visit Provider Internal Medicine | DX: E11.59 Type 2 diabetes mellitus with other circulatory complications (principal); E11.39 Type 2 diabetes mellitus with other diabetic ophthalmic complication; I10 Essential (primary) hypertension; E78.5 Hyperlipidemia, unspecified; E78.2 Mixed hyperlipidemia; Z79.4 Long term (current) use of insulin | CPT/HCPCS: 96127; 99212 ==

== ENCOUNTER 2024-10-03 09:44 | Outpatient (REF) | payer MEDICARE, OTHER, SELFPAY ==
[2024-10-03 11:48] LABS: Estimated Average Glucose 126 mg/dL; Hemoglobin A1C 151.6824 umol/L; Total Hemoglobin (HGBA1C) 3608.8907 umol/L
[2024-10-03 11:59] LABS: Alanine Aminotransferase 7 U/L (0-40); Albumin Level 4.3 g/dL (3.5-5.0); Alkaline Phosphatase 67 U/L (39-117); Anion Gap 9 (12-20); Aspartate Amino Transferase 21 U/L (5-37); Bilirubin Total 0.5 mg/dL (0.0-1.0); Blood Urea Nitrogen 19 mg/dL (9-16); Carbon Dioxide 29 mmol/L (22-29); Chloride 107 mmol/L (96-108); Cholesterol 96 mg/dL (<200); Estimated Glomerular Filt Rate > 60; Glucose Random 111 mg/dL (60-115); HDL Cholesterol 37 mg/dL (>40); LDL Cholesterol Calculated 43 mg/dL (<100); Potassium 4.7 mmol/L (3.3-5.1); Sodium 140 mmol/L (135-145); Total Protein 6.4 g/dL (6.5-8.0); Triglycerides 80 mg/dL (<150)
== END 2024-10-03 09:45 | disposition home or self-care (01) ==
LOC: HO.WFDLDS 09:44
PROVIDERS: Visit Provider Internal Medicine
DX: E11.9 Type 2 diabetes mellitus without complications (principal); E78.5 Hyperlipidemia, unspecified; Z13.228 Encounter for screening for other metabolic disorders; E11.39 Type 2 diabetes mellitus with other diabetic ophthalmic complication; Z79.4 Long term (current) use of insulin; E78.2 Mixed hyperlipidemia; R94.6 Abnormal results of thyroid function studies
CPT/HCPCS: 36415; 80053; 80061; 83036; 84443

== ENCOUNTER 2024-10-10 10:10 | Outpatient (AMB) | payer MEDICARE, OTHER, SELFPAY ==
--- NOTE | 2024-10-10 10:13 | MHC.PC.OV ---
Vital Signs 10/10/24 10:17 Height 5 ft 7.5 in Weight 181 lb 3 oz BMI 28.0 BP 118/56 L Blood Pressure Location Rt brachial Position Sitting Respiration 12 Pulse 68 Pulse Source Pulse Oximeter Temp 97.9 F Temp Source Oral Pulse Oximetry (%) 97 Oxygen Delivery Method Room Air Intake Visit Reasons: DM Intake Note: Diabetes follow up. Needs refill on Viagra and Cialis. 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 Allergies nirmatrelvir [From Paxlovid] Allergy (Severe, Verified 10/10/24 10:15) Nausea ritonavir [From Paxlovid] Allergy (Severe, Verified 10/10/24 10:15) Nausea Tobacco use date assessed: 10/10/24 Fall risk assessment: No Falls in past year Last assessed Fall Risk: 10/10/24 Dental Screening Dental Screen Date: 10/10/24 Did you have a dental visit in the last 12 months?: Yes Did you have a dental problem in the last 6 months where you did not have access to dental care?: No Was dental information given to patient?: Patient has dentist HPI HPI Comments History of Present Illness Details The patient is a 73-year-old male with a past medical history of type 2 diabetes, hypertension, hyperlipidemia, OA presenting for follow-up Type 2 diabetes: A1C 6.0 from 6.4% from from 7%. On Basaglar 20, metformin 1000 twice daily, mounjaro 10. Has lost 13 pounds. On statin, ARB. Does have neuropathy-much improved. On prn gabapentin-infrequent. History of intra-ocular lens replacement procedure. Eye exam is up to date. ED on daily cialis, prn viagra CV: On valsartan, lipitor. Normotensive. Denies chest pain, shortness of breath OA: Right knee. Colonoscopy 01/2022-5 year repeat recommended ROS CONSTITUTIONAL: Denies weight loss, fever and chills. HEENT: Denies changes in vision and hearing. RESPIRATORY: Denies SOB and cough. CV: Denies palpitations and CP GI: Denies abdominal pain, N/V/D : Denies dysuria and urinary frequency. MSK: Denies new myalgia and joint pain. SKIN: see HPI NEUROLOGICAL: Denies headache PSYCHIATRIC: Denies recent changes in mood. PHYSICAL EXAM: GENERAL: Alert and oriented x 3. NAD EYES: EOMI. Anicteric. HENT: Moist mucous membranes. No scleral icterus. No cervical lymphadenopathy. LUNGS: Clear to auscultation bilaterally. CARDIOVASCULAR: Regular rate and rhythm. No murmur. No JVD. ABDOMEN: Soft, non-tender +bs EXTREMITIES: No edema. Non-tender. SKIN: Large left back cyst NEUROLOGIC: No focal neurological deficits. CN II-XII grossly intact PSYCHIATRIC: Cooperative. Appropriate mood and affect [facility] Medical History Erectile dysfunction Type 2 diabetes mellitus with renal manifestations Microalbuminuria Hypertension Hyperlipidemia Type 2 diabetes mellitus Surgical History H/O removal of cyst History of eye surgery History of shoulder surgery Family History Mother Diabetes Sister Breast cancer Brother Colon cancer Other Substance abuse Social History Household Members: Spouse Housing: House 75 years or older and lives alone: No Alcohol intake: current Alcohol intake frequency: holidays/special occasions only Alcohol type: beer Comment: occasional Patient Tobacco Use Status: Never used Tobacco e-Cigarette/Vaping Use: Never Used service: Yes Current occupational status: employed Current occupation: [employer] Cognitive needs: No Hearing needs: No Vision needs: No Questionnaire Thrive Questionnaire Date Thrive assessed: 06/06/24 I am a: Patient What is your living situation today?: I have a steady place to live Within the past 12 months, did the food you bought not last and you didn't have the money to get more?: Never true Within the past 12 months, did you worry whether your food would run out before you got money to buy more?: Never true Do you have trouble paying for medicines?: No Do you have trouble getting transportation to medical appointments?: No Do you have trouble paying your heating and electricity bill?: No Do you have trouble taking care of your child, family member or friend?: No Do you have trouble with day-to-day activities such as bathing, preparing meals, shopping, managing finances, etc.?: No Are you currently unemployed and looking for a job?: No Are you interested in more education?: No Please select the resources that you would like help with: None Currently or been in a relationship where the following occur: No concerns reported THRIVE Score: 0 AUDIT C Alcohol Use Questionnaire (AUDIT-C) 1. How often do you have a drink containing alcohol?: Monthly or less 2. How many drinks containing alcohol do you have on a typical day when you are drinking?: 1 or 2 3. How often do you have six or more drinks on one occasion?: Never Total Score: 1 CHAZ-7 AMB Questionnaire CHAZ-7 Date CHAZ - 7 assessed: 06/13/24 Source: Developed by Drs. Cal Vale, Tiffanie Short, Raj Tran and colleagues, with an educational ankita from [employer]. Physical exam (Primary Care) Vital Signs: Last Vital Signs Temp 97.9 F 10/10/24 10:17 Pulse 68 10/10/24 10:17 Resp 12 10/10/24 10:17 BP 118/56 L 10/10/24 10:17 Pulse Ox 97 10/10/24 10:17 Oxygen Delivery Method Room Air 10/10/24 10:17 BMI result Body Mass Index 28.0 Tobacco/Smoking Status: Tobacco use Status Tobacco use date assessed 10/10/24 10/10/24 10:20 Patient Tobacco Use Status Never used Tobacco 10/10/24 10:17 e-Cigarette/Vaping Use Never Used 10/10/24 10:17 Thrive Assessment: Date of Thrive Assessment Date Thrive assessed 06/06/24 10/10/24 10:14 Currently or been in a relationship where the following occur: No concerns reported Coding Level of Care Code Est Pt Level 4 (22533) Complex EM visit Add On G2211 Diagnoses Type 2 diabetes mellitus with other circulatory complication, with long-term current use of insulin E11.59; Z79.4 Diabetes mellitus manager intermediate insulin use: with manager intermediate use Diabetes mellitus complication status: with circulatory complication Diabetes mellitus complication detail: with other circulatory complications Mixed hyperlipidemia E78.2 Hyperlipidemia type: mixed hyperlipidemia Primary hypertension I10 Hypertension type: primary hypertension Assessment & Plan Assessment & Plan (1) Type 2 diabetes mellitus: Code(s): E11.9 - Type 2 diabetes mellitus without complications Category: Medical Qualifiers: Diabetes mellitus group home insulin use: with manager intermediate use Diabetes mellitus complication status: with circulatory complication Diabetes mellitus complication detail: with other circulatory complications Qualified Code(s): E11.59 - Type 2 diabetes mellitus with other circulatory complications; Z79.4 - manager intermediate (current) use of insulin (2) Hyperlipidemia: Code(s): E78.5 - Hyperlipidemia, unspecified Category: Medical Qualifiers: Hyperlipidemia type: mixed hyperlipidemia Qualified Code(s): E78.2 - Mixed hyperlipidemia (3) Hypertension: Code(s): I10 - Essential (primary) hypertension Category: Medical Qualifiers: Hypertension type: primary hypertension Qualified Code(s): I10 - Essential (primary) hypertension Plan 73 year old for follow up DM is well controlled. He will continue the current medication Labs ordered 4 months. Lipids are at goal ED, BPH stable on current medications Orders: Orders Comprehensive Met. Panel 4 Months E11.59 - Type 2 diabetes mellitus with other circulatory complications, E78.2 - Mixed hyperlipidemia, I10 - Essential (primary) hypertension, R94.6 - Abnormal results of thyroid function studies, Z79.4 - manager intermediate (current) use of insulin Hemoglobin A1c 4 Months E11.59 - Type 2 diabetes mellitus with other circulatory complications, E78.2 - Mixed hyperlipidemia, I10 - Essential (primary) hypertension, R94.6 - Abnormal results of thyroid function studies, Z79.4 - manager intermediate (current) use of insulin Complete Blood Count Auto Diff 4 Months E11.59 - Type 2 diabetes mellitus with other circulatory complications, E78.2 - Mixed hyperlipidemia, I10 - Essential (primary) hypertension, R94.6 - Abnormal results of thyroid function studies, Z79.4 - manager intermediate (current) use of insulin Microalbumin, Random (w Creat) 4 Months E11.59 - Type 2 diabetes mellitus with other circulatory complications, E78.2 - Mixed hyperlipidemia, I10 - Essential (primary) hypertension, R94.6 - Abnormal results of thyroid function studies, Z79.4 - manager intermediate (current) use of insulin Prostate Specific Antigen 4 Months E11.59 - Type 2 diabetes mellitus with other circulatory complications, E78.2 - Mixed hyperlipidemia, I10 - Essential (primary) hypertension, R94.6 - Abnormal results of thyroid function studies, Z79.4 - manager intermediate (current) use of insulin Medications: Changed From sildenafil (Viagra) administer 30 minutes to 4 hours before activity 100 mg PO DAILY PRN 30 tabs 0RF Erectile Dysfunction To sildenafil (Viagra) administer 30 minutes to 4 hours before activity GOOD RX [id number] [facility] [id number] Member [id number] 100 mg PO DAILY PRN 30 tabs 3RF Erectile Dysfunction From gabapentin 300 mg PO TID 270 caps 3RF To gabapentin 300 mg PO TID PRN 270 caps 0RF pain Refilled tadalafil (Cialis) 5 mg PO DAILY 90 tabs 3RF
[2024-10-10 10:17] VITALS: BP 118/56; PULSE 68; RESP 12; TEMP 36.6; O2SAT 97; BMI 28.0
== END 2024-10-10 10:44 | disposition home or self-care (01) ==
LOC: HO.HMCFM 10:11
PROVIDERS: PCP Internal Medicine; Visit Provider Internal Medicine
DX: E11.59 Type 2 diabetes mellitus with other circulatory complications (principal); Z79.4 Long term (current) use of insulin; E78.2 Mixed hyperlipidemia; I10 Essential (primary) hypertension

== ENCOUNTER → 2024-10-10 10:10 | Outpatient (BNVA) | payer MEDICARE, OTHER, SELFPAY | PROVIDERS: PCP Internal Medicine; Visit Provider Internal Medicine | DX: E11.59 Type 2 diabetes mellitus with other circulatory complications (principal); E78.2 Mixed hyperlipidemia; I10 Essential (primary) hypertension; M17.11 Unilateral primary osteoarthritis, right knee; N52.9 Male erectile dysfunction, unspecified; N40.0 Benign prostatic hyperplasia without lower urinary tract symptoms; Z79.4 Long term (current) use of insulin; Z79.85 Long-term (current) use of injectable non-insulin antidiabetic drugs; Z79.84 Long term (current) use of oral hypoglycemic drugs; Z79.899 Other long term (current) drug therapy | CPT/HCPCS: 99212 ==

== ENCOUNTER 2025-02-06 08:39 | Outpatient (REF) | payer MEDICARE, OTHER, SELFPAY ==
[2025-02-06 11:27] LABS: MANUAL DIFF FLAG NO
[2025-02-06 12:10] LABS: Hematocrit 45.4 % (42.0-52.0); Hemoglobin 14.6 g/dl (14.0-18.0); Imm Gran Abs Auto 0.05 X10*3/uL (0.00-0.03); Imm Gran Pct Auto 0.8 % (0.0-0.4); Lymphocytes Absolute Auto 1.6 X10*3/uL (1.2-4.9); Mean Corpuscular HGB Conc 32.2 g/dl (31.0-36.0); Mean Corpuscular Hemoglobin 30.0 pg (27.0-33.0); Mean Corpuscular Volume 93.4 fL (80.0-98.0); NRBC Abs Auto 0.000 X10*3/uL (0.0-0.012); NRBC Pct Auto 0.0 /100WBC (0.0-0.2); Platelet Count 224 X10*3/uL (160-400); Red Blood Count 4.86 X10*6/uL (4.60-5.80); White Blood Count 6.0 X10*3/uL (4.8-10.8)
[2025-02-06 12:19] LABS: Microalbum/Creatinine Ratio Ur 17.3 ug/mg cr (<30)
[2025-02-06 12:39] LABS: Prostate Specific Antigen 1.49 ng/mL (<0.05-4.0)
[2025-02-06 12:57] LABS: Alanine Aminotransferase 13 U/L (0-40); Albumin Level 4.3 g/dL (3.5-5.0); Alkaline Phosphatase 81 U/L (39-117); Anion Gap 11 (12-20); Aspartate Amino Transferase 22 U/L (5-37); Blood Urea Nitrogen 18 mg/dL (9-16); Calcium 9.3 mg/dL (8.4-10.2); Carbon Dioxide 29 mmol/L (22-29); Chloride 106 mmol/L (96-108); Estimated Glomerular Filt Rate > 60; Potassium 4.4 mmol/L (3.3-5.1); Sodium 142 mmol/L (135-145); Total Protein 6.4 g/dL (6.5-8.0)
== END 2025-02-06 08:40 | disposition home or self-care (01) ==
LOC: HO.WFDLDS 08:39
PROVIDERS: Visit Provider Internal Medicine
DX: Z12.5 Encounter for screening for malignant neoplasm of prostate (principal); E11.39 Type 2 diabetes mellitus with other diabetic ophthalmic complication; E11.59 Type 2 diabetes mellitus with other circulatory complications; I10 Essential (primary) hypertension; Z79.4 Long term (current) use of insulin; E78.2 Mixed hyperlipidemia; R94.6 Abnormal results of thyroid function studies
CPT/HCPCS: 36415; 80053; 82043; 82570; 83036; 84153; 85025

== ENCOUNTER 2025-02-13 10:15 | Outpatient (AMB) | payer MEDICARE, OTHER, SELFPAY ==
--- NOTE | 2025-02-13 10:36 | A.OFFPC_ITS ---
Vital Signs 02/13/25 10:40 Height 5 ft 7.5 in Weight 177 lb 8 oz BMI 27.4 BP 132/50 L Blood Pressure Location Rt brachial Position Sitting Respiration 16 Pulse 67 Pulse Source Pulse Oximeter Temp 97.8 F Temp Source Oral Pulse Oximetry (%) 99 Oxygen Delivery Method Room Air Intake Visit Reasons: four months fu Intake Note: four month fu Ekg Technician Required: No Allergies nirmatrelvir (From Paxlovid) Allergy (Severe, Verified 02/13/25 10:38) Nausea ritonavir (From Paxlovid) Allergy (Severe, Verified 02/13/25 10:38) Nausea Tobacco use date assessed: 02/13/25 Dental Screening Dental Screen Date: 02/13/25 Did you have a dental visit in the last 12 months?: Yes Did you have a dental problem in the last 6 months where you did not have access to dental care?: No Was dental information given to patient?: Patient has dentist HPI HPI Comments History of Present Illness Details The patient is a 74-year-old male with a past medical history of type 2 diabetes, hypertension, hyperlipidemia, OA presenting for follow-up Type 2 diabetes: A1C 6.1% from 6.0 from 6.4% from from 7%. On Basaglar 20, metformin 1000 twice daily, mounjaro 10. On statin, ARB. Does have neuropathy- much improved. Had prn gabapentin-not taking. History of intra-ocular lens replacement procedure. Eye exam is up to date. ED on daily cialis, prn viagra CV: On valsartan, lipitor. Normotensive. Denies chest pain, shortness of breath OA: Right knee. Still having a great deal of difficulty sleeping. Trazodone helps him to fall asleep but he is not staying asleep Colonoscopy 01/2022-5 year repeat recommended ROS CONSTITUTIONAL: Denies weight loss, fever and chills. HEENT: Denies changes in vision and hearing. RESPIRATORY: Denies SOB and cough. CV: Denies palpitations and CP GI: Denies abdominal pain, N/V/D : Denies dysuria and urinary frequency. MSK: Denies new myalgia and joint pain. SKIN: Denies rash NEUROLOGICAL: Denies headache PSYCHIATRIC: Denies recent changes in mood. PHYSICAL EXAM: GENERAL: Alert and oriented x 3. NAD EYES: EOMI. Anicteric. HENT: Moist mucous membranes. No scleral icterus. No cervical lymphadenopathy. LUNGS: Clear to auscultation bilaterally. CARDIOVASCULAR: Regular rate and rhythm. No murmur. No JVD. ABDOMEN: Soft, non-tender +bs EXTREMITIES: No edema. Non-tender. SKIN: warm, dry NEUROLOGIC: No focal neurological deficits. CN II-XII grossly intact PSYCHIATRIC: Cooperative. Appropriate mood and affect [facility] Medical History Erectile dysfunction Type 2 diabetes mellitus with renal manifestations Microalbuminuria Hypertension Hyperlipidemia Type 2 diabetes mellitus Surgical History H/O removal of cyst History of eye surgery History of shoulder surgery Family History Mother Diabetes Sister Breast cancer Brother Colon cancer Other Substance abuse Social History Household Members: Spouse Housing: House 75 years or older and lives alone: No Alcohol intake: current Alcohol intake frequency: holidays/special occasions only Alcohol type: beer Comment: occasional Patient Tobacco Use Status: Never used Tobacco e-Cigarette/Vaping Use: Never Used service: Yes Current occupational status: employed Current occupation: [employer] Cognitive needs: No Hearing needs: No Vision needs: No Questionnaire Thrive Questionnaire Date Thrive assessed: 06/06/24 I am a: Patient What is your living situation today?: I have a steady place to live Within the past 12 months, did the food you bought not last and you didn't have the money to get more?: Never true Within the past 12 months, did you worry whether your food would run out before you got money to buy more?: Never true Do you have trouble paying for medicines?: No Do you have trouble getting transportation to medical appointments?: No Do you have trouble paying your heating and electricity bill?: No Do you have trouble taking care of your child, family member or friend?: No Do you have trouble with day-to-day activities such as bathing, preparing meals, shopping, managing finances, etc.?: No Are you currently unemployed and looking for a job?: No Are you interested in more education?: No Please select the resources that you would like help with: None Currently or been in a relationship where the following occur: No concerns reported THRIVE Score: 0 CHAZ-7 AMB Questionnaire CHAZ-7 Date CHAZ - 7 assessed: 06/13/24 Source: Developed by Drs. Cal Vale, Tiffanie Short, Raj Tran and colleagues, with an educational ankita from [employer]. Physical exam (Primary Care) Vital Signs: Last Vital Signs Temp 97.8 F 02/13/25 10:40 Pulse 67 02/13/25 10:40 Resp 16 02/13/25 10:40 BP 132/50 L 02/13/25 10:40 Pulse Ox 99 02/13/25 10:40 Oxygen Delivery Method Room Air 02/13/25 10:40 BMI result Body Mass Index 27.4 Tobacco/Smoking Status: Tobacco use Status Tobacco use date assessed 02/13/25 02/13/25 10:44 Patient Tobacco Use Status Never used Tobacco 02/13/25 10:44 e-Cigarette/Vaping Use Never Used 02/13/25 10:44 Thrive Assessment: Date of Thrive Assessment Date Thrive assessed 06/06/24 02/13/25 10:44 Currently or been in a relationship where the following occur: No concerns reported Coding Level of Care Code Est Pt Level 4 (88273) Complex EM visit Add On G2211 Diagnoses Type 2 diabetes mellitus with other circulatory complication, with long-term current use of insulin E11.59; Z79.4 Diabetes mellitus terminologist insulin use: with longterm use Diabetes mellitus complication status: with circulatory complication Diabetes mellitus complication detail: with other circulatory complications Primary hypertension I10 Hypertension type: primary hypertension Mixed hyperlipidemia E78.2 Hyperlipidemia type: mixed hyperlipidemia Assessment & Plan Assessment & Plan (1) Type 2 diabetes mellitus: Code(s): E11.9 - Type 2 diabetes mellitus without complications Category: Medical Qualifiers: Diabetes mellitus longterm insulin use: with longterm use Diabetes mellitus complication status: with circulatory complication Diabetes mellitus complication detail: with other circulatory complications Qualified Code(s): E11.59 - Type 2 diabetes mellitus with other circulatory complications; Z79.4 - equipment operator [employer] (current) use of insulin (2) Hypertension: Code(s): I10 - Essential (primary) hypertension Category: Medical Qualifiers: Hypertension type: primary hypertension Qualified Code(s): I10 - Essential (primary) hypertension (3) Hyperlipidemia: Code(s): E78.5 - Hyperlipidemia, unspecified Category: Medical Qualifiers: Hyperlipidemia type: mixed hyperlipidemia Qualified Code(s): E78.2 - Mixed hyperlipidemia Plan 74 year old male presenting for follow up Diabetes is well controlled. Continue current medication Insomnia-trial of ambien. Orders: Orders Hemoglobin A1c 3 Months E11.59 - Type 2 diabetes mellitus with other circulatory complications, Z79.4 - equipment operator [employer] (current) use of insulin Comprehensive Met. 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
[2025-02-13 10:40] VITALS: BP 132/50; PULSE 67; RESP 16; TEMP 36.6; O2SAT 99; BMI 27.4
== END 2025-02-13 11:10 | disposition home or self-care (01) ==
LOC: HO.HMCFM 10:16
PROVIDERS: PCP Internal Medicine; Visit Provider Internal Medicine
DX: E11.59 Type 2 diabetes mellitus with other circulatory complications (principal); Z79.4 Long term (current) use of insulin; I10 Essential (primary) hypertension; E78.2 Mixed hyperlipidemia

== ENCOUNTER → 2025-02-13 10:15 | Outpatient (BNVA) | payer MEDICARE, OTHER, SELFPAY | PROVIDERS: PCP Internal Medicine; Visit Provider Internal Medicine | DX: E11.59 Type 2 diabetes mellitus with other circulatory complications (principal); I10 Essential (primary) hypertension; E78.2 Mixed hyperlipidemia; G47.00 Insomnia, unspecified; M17.11 Unilateral primary osteoarthritis, right knee; N52.9 Male erectile dysfunction, unspecified; Z79.4 Long term (current) use of insulin; Z79.84 Long term (current) use of oral hypoglycemic drugs; Z79.899 Other long term (current) drug therapy | CPT/HCPCS: 99212 ==